=== PATIENT | male | born 1960 | race Hispanic/Latino ===

== ENCOUNTER 2021-06-26 12:17 | Day surgery (SDC) | payer BC, OTHER ==
--- NOTE | 2021-06-26 13:33 | Anesthesia Day of Surgery ---
Anesthesia Day of Surgery - Day of Surgery Patient Examined: Yes Patient H&P Reviewed: Yes Patient is NPO: Yes
--- NOTE | 2021-06-26 13:33 | Anesthesia Consultation ---
Anesthesia Consult and Med Hx Date of service: 06/26/21 - Airway Anesthetic Teeth Evaluation: Good ROM Head & Neck: Adequate Mental/Hyoid Distance: Adequate Mallampati Class: Class II Intubation Access Assessment: Good - Pulmonary Exam CTA: Yes - Cardiac Exam Cardiac Exam: RRR - Pre-Operative Health Status ASA Pre-Surgery Classification: ASA3 Proposed Anesthetic Plan: MAC (h/o arotic stent) - Pulmonary Hx Smoking: Yes (Quit 7 yrs ago, quit cigars 6 mos ago) Hx Asthma: No SOB: No COPD: No Hx Pneumonia: No - Cardiovascular System Hx Hypertension: Yes (Occassional CP) Hx Coronary Artery Disease: Yes (s/p stents x 2 7 yrs ago) Hx Heart Attack/AMI: Yes (2006) Hx Peripheral Vascular Disease: Yes - Central Nervous System CVA: No Hx Psychiatric Problems: No - Gastrointestinal Hx Gastroesophageal Reflux Disease: Yes (Diet related, medication related- controlled w/ Prilosec) - Endocrine Hx Renal Disease: Yes (renal stones only) Hx End Stage Renal Disease: No - Hematic Hx Anemia: No - Other Systems Hx Alcohol Use: Yes (OCCAS BEER) Hx Obesity: No
[2021-06-26] MEDS ORDERED: LACTATED RINGERS 1,000 ML IV SCH (13:45)
[2021-06-26 13:58] LABS: Basophils # (Auto) 0.1 K/mm3 (0.0-0.1); Basophils % (Auto) 1.9 % (0.0-1.8); Eosinophils # (Auto) 0.1 K/mm3 (0.0-0.4); Eosinophils % (Auto) 1.5 % (0.0-4.3); Hematocrit 43.8 % (35.5-45.6); Hemoglobin 15.4 gm/dl (11.8-15.2); Lymphocytes # (Auto) 1.1 K/mm3 (1.2-5.4); Mean Corpuscular HGB Conc 35 % (32-34); Mean Corpuscular Volume 99 fl (84-94); Monocytes # (Auto) 0.6 K/mm3 (0.0-0.8); Monocytes % (Auto) 8.1 % (0.0-7.3); Platelet Count 238 K/mm3 (140-440); Red Blood Count 4.44 M/mm3 (3.65-5.03); Red Cell Distribution Width 13.1 % (13.2-15.2)
[2021-06-26] MEDS ORDERED: ATROPINE 0.1% (1 MG/10 ML) CARDIAC SYRINGE ONE (14:04)
[2021-06-26] MEDS ORDERED: propofoL 200 MG/20 ML VIAL IV ONE (14:11)
[2021-06-26 14:13] LABS: BUN/Creatinine Ratio 13; Blood Urea Nitrogen 12 mg/dL (9-20); Hemolysis Index 16
--- NOTE | 2021-06-26 15:12 | Short Stay Summary ---
Short Stay Documentation - History H&P: obtained from office - Allergies and Medications Current Medications: Allergies No Known Allergies Allergy (Verified 12/01/14 09:23) Home Medications Medication Instructions Recorded Confirmed Last Taken Type Aspirin [Aspirin BABY CHEW TAB] 81 mg PO DAILY 12/02/14 12/08/14 12/07/14 19:00 History Atorvastatin [Lipitor] 40 mg PO DAILY 12/02/14 12/08/14 12/07/14 19:00 History Baclofen 10 mg PO PRN PRN 12/02/14 12/08/14 12/07/14 19:00 History Clopidogrel Bisulfate [Plavix] 75 mg PO DAILY 12/02/14 12/08/14 12/07/14 19:00 History FLUoxetine HCL [FLUoxetine] 10 mg PO HS 12/02/14 12/08/14 12/07/14 19:00 History Fenofibric Acid (Choline) 45 mg PO DAILY 12/02/14 12/08/14 12/07/14 19:00 History [Trilipix] HYDROcodone/APAP 10-325 [Bruno 1 tab PO PRN PRN 12/02/14 12/08/14 12/07/14 13:00 History 10-325 mg TAB] Metoprolol [Lopressor TAB] 10 mg PO DAILY 12/02/14 12/08/14 12/07/14 19:00 History Multivitamin [Multi-Vitamin Daily] 1 tab PO DAILY 12/02/14 12/08/14 12/07/14 His tory [place]-3 Fatty Acids [Fish Oil] 300 mg PO DAILY 12/02/14 12/08/14 12/07/14 19:00 History Omeprazole [PriLOSEC] 40 mg PO DAILY 12/02/14 12/08/14 12/08/14 04:30 History Ramipril 10 mg PO DAILY 12/02/14 12/08/14 12/07/14 19:00 History amLODIPine 10 mg PO DAILY 12/02/14 12/08/14 12/07/14 19:00 History FLUoxetine HCL [FLUoxetine] 20 mg PO DAILY 12/08/14 12/08/14 12/07/14 06:00 History HYDROcodone/ACETAMINOPHEN [Bruno 1 each PO Q6HR PRN #40 tablet 12/09/14 Unknown Rx 7.5-325 mg TAB] Amiodarone [Cordarone 200 MG TAB] 200 mg PO QDAY #90 tablet 06/26/21 Unknown Rx Active Medications Lactated Ringer's (Lactated Ringers) 1,000 mls @ 100 mls/hr IV DIRECT RAMBO - Brief post op/procedure progress note Pre-op diagnosis: afib Post-op diagnosis: same Estimated blood loss: none - Disposition Condition at discharge: Good Disposition: 01 HOME / SELF CARE / HOMELESS - Discharge Diagnoses (1) Atrial fibrillation Status: Acute Short Stay Discharge Plan Activity: advance as tolerated Diet: low fat, low cholesterol, low salt Additional Instructions: Patient should follow up with Dr. Florian, [facility], in 08/08/2021 at 1:45pm in our [place] location. Patient should take amiodorone 200mg by mouth each day Patient should take metoprolol XL 100mg by mouth each day Prescriptions: Amiodarone [Cordarone 200 MG TAB] 200 mg PO QDAY #90 tablet
--- NOTE | 2021-06-26 21:42 | Electrophysiological Studies ---
DATE OF SERVICE: 06/26/2021 PREPROCEDURE DIAGNOSIS: Refractory atrial fibrillation. PROCEDURE PERFORMED: Direct current cardioversion. ANESTHESIA: Local and monitored anesthesia care per the Anesthesiology Service. DESCRIPTION OF PROCEDURE: The patient was brought to the OPPU. The defibrillator pads were placed in the anterior sternal region and the posterior apical region. Synced biphasic direct current of 200 joules was applied without successful cardioversion. After 3 minutes, 200 joules was reapplied with no success of conversion. COMPLICATIONS: None. ESTIMATED BLOOD LOSS: 0 mL. ASSESSMENT: Unsuccessful cardioversion of atrial fibrillation. PLAN: Start amiodarone 200 mg daily. Continue Toprol-XL 100 mg daily. Continue oral anticoagulation. DISPOSITION: The patient was stable in the OPPU. TID: [id number] RECEIPT: [id number] DENIZ/JIMMY
--- NOTE | 2021-06-27 13:20 | Electrocardiograph Report ---
[facility] Test Date: 2021-06-26 Test Time: 13:02:49 Pat Name: DENISE MENDEZ Department: Room: Gender: M Manager Floor: [place] : 1960 Requested By: QUE BECERRA Order Number: [id number] Reading MD: Hanna Peterson Measurements Intervals [place] Rate: 88 P: NM: QRS: -20 QRSD: 102 T: 71 QT: 365 QTc: 442 Interpretive Statements Atrial fibrillation No previous ECG available for comparison Electronically Signed On 06-27-2021 13:20:19 EDT by Hanna Peterson
== END 2021-06-26 15:35 | disposition home or self-care (01) ==
LOC: CATH 12:17 → CATHLABREC 12:17
PROVIDERS: ATTEND Internal Medicine Cardiovascular Disease
DX: I48.19 Other persistent atrial fibrillation (principal); I25.10 Atherosclerotic heart disease of native coronary artery without angina pectoris; I10 Essential (primary) hypertension; E78.2 Mixed hyperlipidemia; K21.9 Gastro-esophageal reflux disease without esophagitis; M19.90 Unspecified osteoarthritis, unspecified site; F32.9 Major depressive disorder, single episode, unspecified; Z98.61 Coronary angioplasty status; Z87.891 Personal history of nicotine dependence; Z79.82 Long term (current) use of aspirin; Z79.899 Other long term (current) drug therapy; Z98.890 Other specified postprocedural states
CPT/HCPCS: 36415; 80048; 85025; 92960; 93005; J2704; J7120; J0461